=== PATIENT | female | born 1970 | race Caucasian/White ===

== ENCOUNTER 2016-06-24 02:39 | Emergency (ER) | payer OTHER ==
[~2016-06-24 02:39] MED LIST: ACYCLOVIR400 MG PO; ALBUTEROL17 GM INH; ALPRAZOLAM PO; AMBIEN PO; AMOXICILLIN PO; AUGMENTIN PO; BACTRIM DS TABL1 TA1 PO; BACTRIM DS TABL1 TAB PO; CIPRO PO; DEPAKOTE; DILAUDID8 MG PO; FIORICET 50-301 EACH; FIORICET1 TAB PO; HEPARIN; KEFLEX500 MG PO; KEFZOL2 GM IV; LOVENOX40 MG/0.4 INJ; LYRICA PO; METHADONE PO; PENICILLIN PO; PERCOCET10 PO; PHENERGAN PO; PHENERGAN25 M1 PO; REMERON PO; ROXICODONE15 MG PO; ROXICODONE30 M1; SAVELLA PO; SEROQUEL PO; SOMA COMPOUND T1 TAB PO; SYNTHROID PO; [UNRECOGNIZED DRUG - REMARK] PO
[2016-06-24 03:12] LABS: URINE SOURCE CLEAN CATCH
[2016-06-24 03:15] LABS: URINE APPEARANCE HAZY; URINE BILIRUBIN NEG (NEG); URINE BLOOD 3+ (NEG); URINE COLOR DK YELLOW; URINE GLUCOSE NEG (NORM); URINE KETONE TRACE (NEG); URINE LEUKOCYTE ESTERASE NEG (NEG); URINE NITRATE NEG (NEG); URINE PH 5.5 (5-8); URINE PROTEIN 1+ (NEG); URINE SPECIFIC GRAVITY >=1.030 (1.003-1.035)
[2016-06-24 03:20] LABS: MICRO INDICATED? YES
[2016-06-24 03:23] LABS: URINE RBC INNUM /[HPF] (0-2)
[2016-06-24 03:25] LABS: CULTURE INDICATED? YES; URINE BACTERIA 1+ (NEG); URINE SQUAMOUS EPITHELIAL CELL OCCAS /[HPF]
== END 2016-06-24 04:15 | disposition home or self-care (01) ==
LOC: SED 02:39
PROVIDERS: Emergency Medicine
DX: N30.01 Acute cystitis with hematuria (principal); Z88.8 Allergy status to other drugs, medicaments and biological substances; Z79.899 Other long term (current) drug therapy
CPT/HCPCS: 81003; 84703; 87086; 99284